=== PATIENT | male | born 2000 | race Caucasian/White ===

== ENCOUNTER 2022-01-08 12:34 | Emergency (ER) | payer OTHER ==
[2022-01-08 13:07] VITALS: BP 141/87
[2022-01-08] MEDS ORDERED: ONDANSETRON ODT 4 MG TABLET TL STA (13:13)
--- NOTE | 2022-01-08 13:46 | XRAY Report ---
PROCEDURE: Hand 3 View LT INDICATIONS: injury to small finger TECHNIQUE: Three views of the hand(s) acquired. COMPARISON: None. FINDINGS: Bones: No fractures or dislocations. No suspicious bony lesions. Soft tissues: No suspicious soft tissue calcifications. IMPRESSION: No fracture or dislocation. Soft tissue swelling in the distal 5th digit. Reviewed by: Joshua Hand MD on 01/08/2022 1:45 PM PDT Approved by: Joshua Hand MD on 01/08/2022 1:45 PM PDT Station ID: [id number]
[2022-01-08] MEDS ORDERED: BACITRACIN ZINC OINT 1 PACKET TOP STA (14:02)
--- NOTE | 2022-01-08 14:05 | ED Physician Documentation ---
PD HPI SKIN - Stated complaint Stated Complaint: L PINKY FINGER INJ - Chief complaint Chief Complaint: Laceration - History obtained from History obtained from: Patient - Additional information Additional information: Patient comes the emergency department chief complaint of crush injury to left small fingertip. He works a [employer] and states that a piece of equipment that he was using fell and smashed the end of his small finger. He is not sure if it was just the pad of the finger or if it involved the bone as well. He has a wound on the fingertip. No other complaints at this time. He states his last tetanus shot was just couple of years ago. Review of Systems Ten Systems: 10 systems reviewed and negative Constitutional: reports: Reviewed and negative Eyes: reports: Reviewed and negative Ears: reports: Reviewed and negative Nose: reports: Reviewed and negative Throat: reports: Reviewed and negative Cardiac: reports: Reviewed and negative Respiratory: reports: Reviewed and negative GI: reports: Reviewed and negative : reports: Reviewed and negative Skin: reports: Laceration (s) Musculoskeletal: reports: Reviewed and negative Neurologic: reports: Reviewed and negative Psychiatric: reports: Reviewed and negative Endocrine: reports: Reviewed and negative Immunocompromised: reports: Reviewed and negative PD PAST MEDICAL HISTORY - Present Medications Home Medications: Ambulatory Orders Medication Instructions Recorded Confirmed HYDROcod/ACETAM 5/325 [[place] 5/325] 1 - 2 tablet PO Q6H PRN #14 tablet 01/08/22 - Allergies Allergies/Adverse Reactions: Allergies Allergy/AdvReac Type Severity Reaction Status Date / Time azithromycin [From Zithromax] Allergy Hives Verified 01/08/22 13:07 PD ED PE NORMAL - Vitals Vital signs reviewed: Yes - General General: Alert and oriented X 3, No acute distress, Well developed/nourished - HEENT HEENT: Atraumatic, PERRL, EOMI, Moist mucous membranes - Neck Neck: Supple, no meningeal sign - Cardiac Cardiac: Strong equal pulses - Respiratory Respiratory: No respiratory distress - Derm Derm: Warm and dry, No rash, Other (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 Hemorrhagic bulla on left small finger pad with 1.5 cm laceration with fat protrusion overlying. No foreign body.) - Extremities Extremities: No deformity, Other (Limited range of motion of L small finger secondary to pain.) - Neuro Neuro: Alert and oriented X 3 - Psych Psych: Normal mood, Normal affect Results - Vitals Vitals: Vital Signs - 24 hr 01/08/22 13:00 Temperature 36.8 C Heart Rate 57 L Respiratory 18 Rate Blood Pressure 141/87 H O2 Saturation 99 Oxygen O2 Source Room air Procedures - Laceration (location) Left small finger tip Length in cm: 1.5 Wound type: Linear Neurovascular status: Sensory intact, Motor intact Anesthesia: Lidocaine 1% Wound preparation: Hibiclens, Irrigated copiously NS Skin layer closure: Nylon, Interrupted, Size #-0 - enter number (5.0), Sutures - enter # (4) Other: Patient tolerated well, No complications, Neurovascular intact, Dressing applied, Tetanus UTD PD MEDICAL DECISION MAKING - ED course Complexity details: considered differential, d/w patient ED course: The patient was advised regarding wound management at home and the timeline for suture removal. He was also advised regarding the usual indications for return Departure - Departure Disposition: 01 Home, Self Care Clinical Impression: Laceration Crush injury to finger Qualifiers: Encounter type: initial encounter Qualified Code(s): S67.10XA - Crushing injury of unspecified finger(s), initial encounter Condition: Stable Instructions: ED Laceration Hand Prescriptions: HYDROcod/ACETAM 5/325 [[place] 5/325] 1 - 2 tablet PO Q6H PRN #14 tablet PRN Reason: Pain Comments: Your x-rays look good. There is no evidence of any broken bones. You have sustained a crush injury to the soft tissue of your finger pad, and you will most likely notice that the skin completely sloughs off and you grow new skin in its place. You will likely have a blood blister and some bruising of the entire pad of the finger. You have a cut that has been repaired with 4 stitches. These are synthetic and will need to be removed in 7 days. They will not absorb on their own, and it is important that you do not leave them in too long or the skin will start to grow over them. You may allow water and soap to run over the wound but please do not rub, scrub, or immerse the wound. This is to prevent in fection. You may apply an antibiotic ointment such as Neosporin to the cut until it forms a dry scab. If you notice redness or swelling spreading progressively away from the wound, you should have it rechecked. Otherwise, please go to primary care, walk-in clinic, or urgent care to have your sutures removed in 7 days. If he cannot be seen in any of these venues, then you may return to the emergency department. Your prescription has been electronically transmitted to [facility] pharmacy in [place] at your request.
== END 2022-01-08 14:48 | disposition home or self-care (01) ==
LOC: ED 12:34
DX: S61.217A Laceration without foreign body of left little finger without damage to nail, initial encounter (principal); W20.8XXA Other cause of strike by thrown, projected or falling object, initial encounter; Y99.0 Civilian activity done for income or pay
CPT/HCPCS: 1040M; 73130; Q0162